=== PATIENT | female | born 1975 | race Caucasian/White ===

== ENCOUNTER 2018-02-15 23:50 | Emergency (ER) | payer OTHER ==
[~2018-02-15] VITALS: Ht 157.5 cm; Wt 108.0 kg
[2018-02-15 23:54] VITALS: Ht 157.5 cm; Wt 108.0 kg
[2018-02-16 00:47] VITALS: BP 124/69
== END 2018-02-16 00:47 | disposition home or self-care (01) ==
LOC: ED 23:50
DX: M79.89 Other specified soft tissue disorders (principal); Z85.3 Personal history of malignant neoplasm of breast; Z90.710 Acquired absence of both cervix and uterus
CPT/HCPCS: 83880